=== PATIENT | female | born 1980 | race Caucasian/White ===

== ENCOUNTER 2022-05-04 19:07 | Emergency (ER) | payer OTHER ==
[~2022-05-04] VITALS: Ht 170.2 cm; Wt 143.3 kg
[2022-05-04 19:15] VITALS: BP 150/86
--- NOTE | 2022-05-04 19:57 | NUR ---
DR TANNER AT BEDSIDE EXAMINING PT
[2022-05-04 20:34] LABS: BASOPHILS % (AUTO) 0.2 % (0.0-2.0); EOSINOPHILS % (AUTO) 0.6 % (0.0-4.0); HEMATOCRIT 33.9 % (36-48); HEMOGLOBIN 11.4 g/dL (12.0-16.0); LYMPHOCYTES # (AUTO) 2.3 K/uL (2.5-16.5); LYMPHOCYTES % (AUTO) 36.7 % (20.5-51.1); MEAN CORPUSCULAR HEMOGLOBIN 31 pg (27-31); MEAN CORPUSCULAR HGB CONC 34 g/dL (33-37); MEAN CORPUSCULAR VOLUME 91.3 fL (80-94); MONOCYTES # (AUTO) 0.4 K/uL (0.8-1.0); MONOCYTES % (AUTO) 6.4 % (1.7-9.3); NEUTROPHILS # (AUTO) 3.6 K/uL (1.8-7.7); NEUTROPHILS % (AUTO) 56.1 % (42.2-75.2); PLATELET COUNT (AUTO) 188 K/uL (140-450); RED BLOOD CELL COUNT(AUTO) 3.71 MIL/uL (4.20-5.40); RED CELL DISTRIBUTION WIDTH 15.3 % (11.6-13.7); WHITE BLOOD COUNT (AUTO) 6.4 K/uL (4.8-10.8)
--- NOTE | 2022-05-04 20:38 | NUR ---
41 Y/O FEMALE BIBS FROM HOME, C/O 810 GENERALIZED ABDOMINAL PAIN SINCE THIS MORNING. REPORTS TAKING ADVIL AT 4PM WITH NO RELIEF. DENIES V/D, COUGH, FEVER, CP, SOB, OR URINARY SYMPTOMS. STATES PAIN WORSENS WHEN WALKING AND THROBBIBG WHEN LAYING FLAT. A/OX4, AMBULATORY W/O ASSISTANCE, UNLABORED BREATHING. PMH: LUPUS, ANTIPHOSPHOLIPID SYNDROME NKA
[2022-05-04 20:45] LABS: ALBUMIN 3.8 g/dL (3.4-5.0); ANION GAP 13.9 (8-16); CREATININE 0.8 mg/dL (0.6-1.3); POTASSIUM 3.9 mmol/L (3.5-5.1); TOTAL BILIRUBIN 0.4 mg/dL (0.0-1.0)
--- NOTE | 2022-05-04 20:45 | NUR ---
ERMD AT BEDSIDE
[2022-05-04] MEDS: KETOROLAC 30 MG/ML VIAL IVP ONE (20:46)
[2022-05-04] MEDS ORDERED: IBUP-2213 PO (20:50)
[2022-05-04] MEDS ORDERED: ONDA8TAB87 PO (20:50)
[2022-05-04] MEDS ORDERED: ACET-8386 PO (20:50)
--- NOTE | 2022-05-04 21:05 | NUR ---
Patient discharged with v/s stable. Written and verbal after care instructions given and explained. Patient alert, oriented and verbalized understanding of instructions. Ambulatory with steady gait. All questions addressed prior to discharge. ID band removed. Patient advised to follow up with PMD. Rx of NORCO, IBUPROFEN, AND ZOFRAN given. Patient educated on indication of medication including possible reaction and side effects. Opportunity to ask questions provided and answered. VSS, A/OX4, UNLABORED BREATHING, AMBULATORY, AND CALM DEMEANOR.
[2022-05-04] MEDS: MORPHINE SULFATE 4 MG/ML SYR IVP ONE (21:09)
[2022-05-04 21:10] VITALS: BP 145/82
== END 2022-05-04 21:05 | disposition home or self-care (01) ==
LOC: MED 19:07
DX: N83.209 Unspecified ovarian cyst, unspecified side (principal); E07.9 Disorder of thyroid, unspecified; Z90.49 Acquired absence of other specified parts of digestive tract; Z79.899 Other long term (current) drug therapy
CPT/HCPCS: 36415; 74176; 80053; 81002; 81025; 83690; 85025; 96374; 96375; 99284; J1885; J2270

== ENCOUNTER 2022-09-24 09:20 | Inpatient (IN) | payer OTHER ==
[~2022-09-24] VITALS: Ht 170.2 cm; Wt 144.2 kg
[~2022-09-24 09:20] MED LIST: ACET-8905 PO; IBUP-2213 PO; ONDA8TAB87 PO
[2022-09-24 09:29] VITALS: BP 145/86
--- NOTE | 2022-09-24 09:33 | NUR ---
42 y/o female bib family from home, c/o mid back pain that increases with ambulation and pelvic cramping, blood vaginal discharge, wolf for 2 weeks. denies sob, cp, fevers, chills. 7/10 lower abd pain, cramping sensation. a&ox4, ambulates with assist. denies dysuria, hematuria. pmh: thyroid disease, thrombocytopenia, lupus nka med: eliquis, levothyroxine
--- NOTE | 2022-09-24 09:33 | NUR ---
pt ambulated to bed 07
[2022-09-24] MEDS ORDERED: NACL 0.9% 1,000 ML IV ONE (10:00)
[2022-09-24] MEDS ORDERED: MORPHINE SULFATE 4 MG/ML SYR IVP ONE ×2 (10:00→13:35)
[2022-09-24] MEDS ORDERED: ONDANSETRON 4 MG/2 ML VIAL IVP ONE ×2 (10:00→13:35)
[2022-09-24 10:12] LABS: BASOPHILS % (AUTO) 0.3 % (0.0-2.0); EOSINOPHILS # (AUTO) 0.1 K/uL (0-0.4); EOSINOPHILS % (AUTO) 1.6 % (0.0-4.0); HEMATOCRIT 36.2 % (36-48); HEMOGLOBIN 12.3 g/dL (12.0-16.0); LYMPHOCYTES # (AUTO) 1.6 K/uL (2.5-16.5); LYMPHOCYTES % (AUTO) 33.4 % (20.5-51.1); MEAN CORPUSCULAR HEMOGLOBIN 31 pg (27-31); MEAN CORPUSCULAR HGB CONC 34 g/dL (33-37); MEAN CORPUSCULAR VOLUME 90.6 fL (80-94); MONOCYTES # (AUTO) 0.4 K/uL (0.8-1.0); MONOCYTES % (AUTO) 7.9 % (1.7-9.3); NEUTROPHILS # (AUTO) 2.8 K/uL (1.8-7.7); NEUTROPHILS % (AUTO) 56.8 % (42.2-75.2); PLATELET COUNT (AUTO) 221 K/uL (140-450); RED BLOOD CELL COUNT(AUTO) 3.99 MIL/uL (4.20-5.40); RED CELL DISTRIBUTION WIDTH 14.7 % (11.6-13.7); WHITE BLOOD COUNT (AUTO) 4.9 K/uL (4.8-10.8)
--- NOTE | 2022-09-24 10:16 | NUR ---
PT TAKEN TO CT VIA SHRUTI
[2022-09-24 10:23] LABS: APPEARANCE,URINE CLEAR (CLEAR); BILIRUBIN,URINE NEGATIVE (NEGATIVE); BLOOD, URINE NEGATIVE (NEGATIVE); COLOR,URINE YELLOW (YELLOW); LEUKOCYTE ESTERASE ,URINE NEGATIVE (NEGATIVE); NITRITE, URINE NEGATIVE (NEGATIVE); UGLUCOSE NEGATIVE (NEGATIVE)
[2022-09-24 10:30] LABS: ALBUMIN 3.8 g/dL (3.4-5.0); ANION GAP 11.5 (8-16); CARBON DIOXIDE 27.4 mmol/L (21-32); CREATININE 0.7 mg/dL (0.6-1.3); POTASSIUM 3.9 mmol/L (3.5-5.1); TOTAL BILIRUBIN 0.4 mg/dL (0.0-1.0)
--- NOTE | 2022-09-24 10:40 | NUR ---
PT BROUGHT BACK VIA SHRUTI
[2022-09-24] MEDS ORDERED: LEVO0.2T19 PO (13:39)
[2022-09-24] MEDS ORDERED: APIX5TAB PO (13:39)
[2022-09-24] MEDS ORDERED: HYDR200T5 PO (13:39)
[2022-09-24] MEDS ORDERED: DIVA-56 PO (13:39)
--- NOTE | 2022-09-24 13:39 | NUR ---
pt swabbed for covid(irene). handed to lab
[2022-09-24] MEDS ORDERED: ACETAMINOPHEN 325 MG TAB PO PRN (14:20)
[2022-09-24] MEDS ORDERED: ZOLPIDEM 10 MG TAB PO PRN (14:20)
[2022-09-24] MEDS ORDERED: DOCUSATE SODIUM 100 MG GELCAP PO PRN (14:20)
[2022-09-24] MEDS ORDERED: ONDANSETRON 4 MG/2 ML VIAL IVP PRN (14:20)
[2022-09-24] MEDS ORDERED: LORazepam 2 MG/ML VIAL IVP PRN (14:20)
[2022-09-24] MEDS ORDERED: MORPHINE SULFATE 2 MG/ML SYR IVP PRN (14:20)
[2022-09-24] MEDS ORDERED: POTASSIUM CHLORIDE 10 MEQ TABER PO PRN (14:20)
[2022-09-24] MEDS ORDERED: MAG SULF 2000 MG/WATER PREMIX 50 ML IV PRN (14:20)
[2022-09-24] MEDS: NACL 0.9% 1,000 ML IV SCH (14:41)
--- NOTE | 2022-09-24 14:57 | NUR ---
Note baojoanne in EDM - 09/24/22 at 1457 by [id number] Patient discharged with v/s stable. Written and verbal after care instructions given and explained. Patient alert, oriented and verbalized understanding of instructions. Ambulatory with steady gait. All questions addressed prior to discharge. ID band removed. Patient advised to follow up with PMD. Rx of KEFLEX, PYRIDIUM given. Patient educated on indication of medication including possible reaction and side effects. Opportunity to ask questions provided and answered.
--- NOTE | 2022-09-24 17:16 | NUR ---
Note yvonne in ED - 09/24/22 at 1733 by PHSEP Patient will be admitted to care of MD SILVA. Admited to TELE. Will go to room 11A. Belongings list completed. Report to NUSRAT MARROQUIN.
--- NOTE | 2022-09-24 17:16 | NUR ---
Patient will be admitted to care of MD SILVA. Admited to M/S. Will go to room 111A. Belongings list completed. Report to NUSRAT MARROQUIN.
--- NOTE | 2022-09-24 17:47 | NUR ---
The patient's care was reviewed and supervised by Bowie 05 GILA, RN.
[2022-09-24 18:28] VITALS: BP 114/77
--- NOTE | 2022-09-24 19:00 | NUR ---
PT HAS LUPUS OF SLE, HAS SEIZURE DISORDER AND UPPER ABD PAIN NPO FOR NOW.[id number]
--- NOTE | 2022-09-24 19:20 | NUR ---
RECEIVED PATIENT IN BED AWAKE ALERT ORIENTED ON ROOM AIR WELL RESTED. NO S/S OF RESPIRATORY DISTRESS. IVF NS INFUSING AT 100 ML/HR ON THE RAC. NO COMPLAINTS OF PAIN AT THIS TIME. CALL LIGHT ON EASY REACH. ALL SAFETY PRECAUTIONS ARE IN PLACE.
[2022-09-24] MEDS: DIVALPROEX 500 MG TABEC PO SCH ×2 (20:22→21:53)
[2022-09-25] MEDS: NACL 0.9% 1,000 ML IV SCH ×3 (03:00→14:20)
[2022-09-25 04:00] VITALS: BP 120/78
[2022-09-25] MEDS ORDERED: LEVOTHYROXINE 0.1 MG TAB PO SCH (06:30)
--- NOTE | 2022-09-25 06:40 | NUR ---
PATIENT COMPLAINED OF ABDOMINAL PAIN, MEDICATED WITH MORPHINE IVP.
--- NOTE | 2022-09-25 07:10 | NUR ---
RECEIVED BEDSIDE REPORT FROM MARI STUDENT COUNSELOR RN, FOR CONTINUITY OF CARE. PT A/OX4, ABLE TO MAKE NEEDS KNOWN. 20G IV TO RAC INFUSING NS AT 100 ML/HR. ROOM AIR. NPO. STRENGTH WNL. STATES ABD PAIN IS MUCH BETTER AFTER MORPHINE. STANDARD PRECAUTION. CALL LIGHT WITHIN REACH. BED LOCKED AND IN LOWEST POSITION. ALL COMFORT NEEDS MET AT THIS TIME.
[2022-09-25 07:11] LABS: BASOPHILS % (AUTO) 0.4 % (0.0-2.0); EOSINOPHILS # (AUTO) 0.1 K/uL (0-0.4); EOSINOPHILS % (AUTO) 1.8 % (0.0-4.0); HEMATOCRIT 33.8 % (36-48); HEMOGLOBIN 11.7 g/dL (12.0-16.0); LYMPHOCYTES # (AUTO) 1.8 K/uL (2.5-16.5); LYMPHOCYTES % (AUTO) 36.1 % (20.5-51.1); MEAN CORPUSCULAR HEMOGLOBIN 31 pg (27-31); MEAN CORPUSCULAR HGB CONC 35 g/dL (33-37); MEAN CORPUSCULAR VOLUME 90.6 fL (80-94); MONOCYTES # (AUTO) 0.4 K/uL (0.8-1.0); MONOCYTES % (AUTO) 7.4 % (1.7-9.3); NEUTROPHILS # (AUTO) 2.6 K/uL (1.8-7.7); NEUTROPHILS % (AUTO) 54.3 % (42.2-75.2); PLATELET COUNT (AUTO) 206 K/uL (140-450); RED BLOOD CELL COUNT(AUTO) 3.73 MIL/uL (4.20-5.40); WHITE BLOOD COUNT (AUTO) 4.9 K/uL (4.8-10.8)
[2022-09-25 07:13] LABS: ANION GAP 10.8 (8-16); CARBON DIOXIDE 28.7 mmol/L (21-32); CREATININE 0.6 mg/dL (0.6-1.3); POTASSIUM 4.5 mmol/L (3.5-5.1)
--- NOTE | 2022-09-25 07:15 | NUR ---
BEDSIDE ENDORSEMENT GIVEN TO DAY SHIFT NURSE MEDINA FOR CONTINUITY OF CARE. PATIENT STABLE.
[2022-09-25 08:00] VITALS: BP 122/77
[2022-09-25] MEDS: DIVALPROEX 500 MG TABEC PO SCH (08:06)
[2022-09-25 15:57] VITALS: BP 122/77
--- NOTE | 2022-09-25 16:45 | NUR ---
ALL DISCHARGE PAPERWORK DONE. PT ADVISED TO FOLLOW UP WITH DR. GELLER OUTPATIENT. PT WALKED TO FRONT LOBBY WITH ALL BELONGINGS. TO PICK HER UP IN PERSONAL VEHICLE. VSS. BP 133/75, RR 20, HR 75, TEMP 97.5, SPO2 99%.
== END 2022-09-25 17:00 | disposition home or self-care (01) | DRG 532 ==
LOC: MED 09:20 → MTU 14:16
PROVIDERS: ADMIT Family Medicine; ATTEND Family Medicine
DX: N83.8 Other noninflammatory disorders of ovary, fallopian tube and broad ligament (principal); M32.9 Systemic lupus erythematosus, unspecified; R56.9 Unspecified convulsions; E03.9 Hypothyroidism, unspecified; Z20.822 Contact with and (suspected) exposure to COVID-19; Z90.49 Acquired absence of other specified parts of digestive tract
CPT/HCPCS: 36415; 76856; 80048; 80053; 81003; 83735; 85025; 87081; 87086; 96361; 96374; 96375; 96376; 99285; J2270; J2405; J7030; Q0092